=== PATIENT | female | born 1995 | race Caucasian/White ===

== ENCOUNTER 2016-09-20 18:35 | Emergency (ER) | payer OTHER ==
[~2016-09-20] VITALS: Ht 154.9 cm; Wt 73.9 kg
[~2016-09-20 18:35] MED LIST: ELIMITE60 G1; ELIMITE60 GM TOP; NITROFURANTOIN100 M3 PO; NO MEDICATIONS; PRENATAL1 TA1 PO; ZOFRAN ODT4 MG/UDTAB PO
[2016-09-20 19:45] LABS: URINE SOURCE CLEAN CATCH
[2016-09-20 19:48] LABS: URINE APPEARANCE SL CLOUDY; URINE BILIRUBIN NEG (NEG); URINE BLOOD NEG (NEG); URINE COLOR YELLOW; URINE GLUCOSE NEG (NORM); URINE KETONE NEG (NEG); URINE LEUKOCYTE ESTERASE NEG (NEG); URINE NITRATE POS (NEG); URINE PROTEIN NEG (NEG); URINE SPECIFIC GRAVITY >=1.030 (1.003-1.035)
[2016-09-20 19:54] LABS: CULTURE INDICATED? YES; MICRO INDICATED? YES; URINE BACTERIA 3+ (NEG); URINE SQUAMOUS EPITHELIAL CELL MODERATE /[HPF]
[2016-09-20 19:55] LABS: URINE MUCUS PRESENT
== END 2016-09-20 20:21 | disposition home or self-care (01) ==
LOC: SED 18:35
DX: N39.0 Urinary tract infection, site not specified (principal); F17.200 Nicotine dependence, unspecified, uncomplicated; Z88.0 Allergy status to penicillin
CPT/HCPCS: 81003; 84703; 87086; 87088; 87186; 99284

== ENCOUNTER 2016-10-02 10:25 | Emergency (ER) | payer OTHER ==
--- NOTE | ~2016-10-02 | CT4 ---
[facility]. [facility] A Service of [facility] RADIOLOGY TEXT RESULTS PATIENT: RENATE ANGUIANO LOCATION: SED : [birth year] UNIT #: [id number] AGE: [address]: TYREL REARDON SEX: F ORDER DR: [id number] [address] [address] [id number] E MR#: [id number] #: [id number] NAME: RENATE ANGUIANO : 1995 SEX: F STUDY DATE/TIME: 10/02/2016 11:06 UNIT: SED ROOM: STUDY DESCRIPTION: CT Abd and Pelv Wo Cont Attending Physician: Tyrel Reardon Ordering Physician: Tyrel Reardon Primary Care Physician: Angelika Primary Care Physician MEDICAL IMAGING REPORT This report is preliminary unless electronic signature is present. EXAM CT of the abdomen and pelvis without contrast. INDICATION Left-sided abdominal pain for 3 weeks but not getting better. TECHNIQUE CT scan of the abdomen and pelvis was performed without contrast. Coronal and sagittal reformatted images were obtained. This CT exam was performed with one or more of the following radiation dose reduction techniques: automatic exposure control, adjustment of mA and/or kV according to patient size, and iterative reconstruction. COMPARISON No comparisons are available. FINDINGS The lung bases are clear. The liver, gallbladder, and spleen are unremarkable. The kidneys, adrenal glands, and pancreas are unremarkable. PELVIS: There is some mild nonspecific thickening of the urinary bladder. This may indicate cystitis. Correlate clinically. Physiologic adnexal cyst on the left measuring about 3.3 cm. The colon is located on the left side of the abdomen. 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 The appendix is normal. The bone windows are unremarkable. IMPRESSION 1. There is some mild thickening of the urinary bladder which may indicate cystitis. 2. Correlate clinically. 3. 3.3 cm physiologic left adnexal cysts. [facility] A Service of [facility] RADIOLOGY TEXT RESULTS PATIENT: RENATE ANGUIANO LOCATION: SED : [birth year] UNIT #: [id number] AGE: [address]: TYREL REARDON SEX: F ORDER DR: Dictated by... Frederic Marie M.D. THIS IS AN ELECTRONICALLY VERIFIED REPORT Frederic Marie M.D. at 10/02/2016 4:37 PM PHI/artie TD: 10/02/2016 14:23 JOB #: [id number] MEDICAL IMAGING REPORT Page 1 of 1
[2016-10-02 10:44] LABS: URINE SOURCE CLEAN CATCH
[2016-10-02 10:47] LABS: URINE APPEARANCE HAZY; URINE BILIRUBIN NEG (NEG); URINE BLOOD 2+ (NEG); URINE COLOR YELLOW; URINE GLUCOSE NEG (NORM); URINE KETONE NEG (NEG); URINE LEUKOCYTE ESTERASE NEG (NEG); URINE NITRATE POS (NEG); URINE PH 5.5 (5-8); URINE PROTEIN NEG (NEG); URINE SPECIFIC GRAVITY 1.025 (1.003-1.035)
[2016-10-02 10:48] LABS: MICRO INDICATED? YES
[2016-10-02 10:50] LABS: CULTURE INDICATED? YES; URINE BACTERIA 4+ (NEG); URINE SQUAMOUS EPITHELIAL CELL FEW /[HPF]
[2016-10-02 11:09] LABS: BASOPHIL% 0.6 % (0-2.5); EOSINOPHIL# 0.1 X10e3 (0-0.7); EOSINOPHIL% 2.2 % (0.0-7.0); HEMATOCRIT 37.5 % (35.0-45.0); HEMOGLOBIN 12.6 gm/dL (12.0-16.0); LYMPHOCYTE# 2.2 X10e3 (1.0-3.5); LYMPHOCYTE% 31.9 % (17.0-45.0); MEAN CELL VOLUME 89.9 FL (83-96); MEAN CORPUSCULAR HEMOGLOBIN 30.1 PG (28-34); MEAN CORPUSCULAR HGB CONC 33.5 g/dL (30-36); MEAN PLATELET VOLUME 9.8 FL (6.5-11.5); MONOCYTE# 0.8 X10e3 (0-1.0); MONOCYTE% 11.6 % (3.0-12.0); NEUTROPHIL# 3.7 X10e3 (1.5-7.1); NEUTROPHIL% 53.7 % (40-75); PLATELET COUNT 200 X10e3 (140-420); RED BLOOD COUNT 4.17 X10e (3.90-5.30); RED CELL DISTRIBUTION WIDTH 13.6 % (11.0-15.5); WHITE BLOOD COUNT 6.8 X10e3 (4.0-10.5)
[2016-10-02 11:10] LABS: DIFF IND NO
[2016-10-02 11:30] LABS: ALBUMIN SERUM 3.8 g/dL (3.5-5.0); BILIRUBIN,TOTAL 0.3 mg/dL (0.2-2.0); BUN/CREATININE RATIO 23.75; CALCIUM SERUM 8.6 mg/dL (8.4-10.2); CREATININE SERUM 0.8 mg/dL (0.6-1.4); POTASSIUM 3.4 mmol/L (3.5-5.1); PROTEIN TOTAL SERUM 6.9 g/dL (6.0-8.3)
== END 2016-10-02 12:23 | disposition home or self-care (01) ==
LOC: SED 10:25
PROVIDERS: Emergency Medicine; Physician Assistant
DX: N30.00 Acute cystitis without hematuria (principal); N83.202 Unspecified ovarian cyst, left side; F17.200 Nicotine dependence, unspecified, uncomplicated; Z88.0 Allergy status to penicillin
CPT/HCPCS: 36415; 74176; 80053; 81003; 84703; 85025; 87086; 96365; 96375; 99284; J0696; J1885

== ENCOUNTER 2016-11-20 20:19 | Emergency (ER) | payer OTHER ==
[~2016-11-20] VITALS: Ht 154.9 cm; Wt 77.1 kg
[2016-11-20] MEDS ORDERED: FLEXERIL10 MG PO (20:37)
[2016-11-20] MEDS ORDERED: MOTRIN600 MG PO (20:37)
[2016-11-20] MEDS ORDERED: TRAMADOL HCL50 M2 PO (20:37)
[2016-11-20 21:17] LABS: URINE SOURCE CLEAN CATCH
[2016-11-20 21:18] LABS: URINE APPEARANCE HAZY; URINE BILIRUBIN NEG (NEG); URINE BLOOD NEG (NEG); URINE COLOR YELLOW; URINE GLUCOSE NEG (NORM); URINE KETONE NEG (NEG); URINE LEUKOCYTE ESTERASE TRACE (NEG); URINE NITRATE NEG (NEG); URINE PROTEIN NEG (NEG); URINE SPECIFIC GRAVITY 1.015 (1.003-1.035); URINE UROBILINOGEN 0.2 MG/DL (NORM)
[2016-11-20 21:19] LABS: MICRO INDICATED? YES
[2016-11-20 21:20] LABS: CULTURE INDICATED? YES; URINE BACTERIA 3+ (NEG); URINE SQUAMOUS EPITHELIAL CELL OCCAS /[HPF]; URINE TRANSITIONAL EPI CELLS FEW /[HPF]
== END 2016-11-20 21:45 | disposition home or self-care (01) ==
LOC: SED 20:19
PROVIDERS: Emergency Medicine
DX: N30.90 Cystitis, unspecified without hematuria (principal); F17.200 Nicotine dependence, unspecified, uncomplicated; Z88.0 Allergy status to penicillin; Z79.899 Other long term (current) drug therapy
CPT/HCPCS: 81003; 87086; 87088; 87186; 99284